=== PATIENT | male | born 1965 | race Caucasian/White ===

== ENCOUNTER 2019-04-15 23:07 | Emergency (ER) | payer MEDICAID ==
[~2019-04-15] VITALS: Ht 175.3 cm; Wt 95.3 kg
--- NOTE | 2019-04-15 23:47 | NUR ---
BIBSELF C/O URI X3 DAYS. C/O NONPRODUCTIVE COUGH, SORE THROAT, BODY ACHE. 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 PT AAOX4. RESPIRATIONS EVEN AND UNLABORED. SKIN WARM TO TOUCH. NO ACUTE DISTRESS NOTED AT THIS TIME. WILL CONTINUE TO MONITOR
[2019-04-16] MEDS ORDERED: ACETAMINOPHEN 325 MG TABLET ONE (00:42)
--- NOTE | 2019-04-16 00:52 | NUR ---
PT BROUGHT BY RADIOLOGY
--- NOTE | 2019-04-16 00:55 | NUR ---
PT RETURNED FROM RADIOLOGY
[2019-04-16] MEDS ORDERED: ACETAMINOPHEN 325 MG TABLET PO ONE (01:00)
[2019-04-16] MEDS ORDERED: CEFTRIAXONE 1GM BAG (ER ONLY) 50 ML IV ONE (01:20)
[2019-04-16] MEDS ORDERED: IBUPROFEN 600 MG TABLET PO ONE ×2 (01:20→01:30)
[2019-04-16] MEDS ORDERED: AZITHROMYCIN 250 MG TABLET ONE (01:20)
[2019-04-16 01:21] LABS: BASOPHILS # (AUTO) 0.1 /CMM (0.0-0.2); BASOPHILS % (AUTO) 0.5 % (0.0-2.0); HEMATOCRIT 42 % (39-51); HEMOGLOBIN 14.3 g/dL (13.5-17.5); LYMPHOCYTES # (AUTO) 0.9 /CMM (0.8-4.8); LYMPHOCYTES % (AUTO) 7.5 % (20.0-44.0); MEAN CORPUSCULAR HGB CONC 34 g/dl (31.0-36.0); MEAN CORPUSCULAR VOLUME 95 fL (80-96); MONOCYTES # (AUTO) 1.3 /CMM (0.1-1.30); MONOCYTES % (AUTO) 10.6 % (2.0-12.0); NEUTROPHILS # (AUTO) 9.8 /CMM (1.8-8.9); NEUTROPHILS % (AUTO) 81.4 % (43.0-81.0); PLATELET COUNT (AUTO) 224 /CMM (150-450); RED BLOOD CELL COUNT(AUTO) 4.39 MIL/uL (4.5-6.0)
[2019-04-16] MEDS ORDERED: IV NS 0.9% 1,000 ML BAG IV ONE (01:30)
[2019-04-16] MEDS ORDERED: AZITHROMYCIN 250 MG TABLET PO ONE (01:30)
[2019-04-16] MEDS ORDERED: CEFTRIAXONE 1 G in IV D5W 50 ML IV ONE (01:30)
[2019-04-16 01:31] LABS: CALCIUM, SERUM 8.5 mg/dL (8.5-10.1); CREATININE 1.2 mg/dL (0.6-1.3); POTASSIUM 3.6 mmol/L (3.5-5.1)
--- NOTE | 2019-04-16 02:16 | NUR ---
Patient discharged to home in stable condition. Written and verbal after care instructions given. Patient verbalizes understanding of instruction. IV removed. Catheter intact and site benign. Pressure and 4x4 applied to site. No bleeding noted.Pt ambulatory with a steady gait
[2019-04-16 02:17] VITALS: BP 144/81
== END 2019-04-16 02:17 | disposition home or self-care (01) ==
LOC: ER 23:10
DX: J18.9 Pneumonia, unspecified organism (principal); R00.0 Tachycardia, unspecified
CPT/HCPCS: 36415; 71046; 80048; 85025; 96365; 99284; J0696 ×2; J7030; J7040; J7060

== ENCOUNTER 2024-10-28 22:29 | Emergency (ER) | payer MEDICAID ==
[~2024-10-28] VITALS: Ht 172.7 cm; Wt 90.7 kg
[2024-10-29] MEDS ORDERED: NAPR-1009 PO (00:44)
[2024-10-29] MEDS ORDERED: HYDROMORPHONE 1 MG/1 ML DISP.SYRIN ONE (01:00)
[2024-10-29] MEDS ORDERED: ONDANSETRON 4 MG TAB.RAPDIS ONE (01:00)
[2024-10-29] MEDS: HYDROMORPHONE 1 MG/1 ML DISP.SYRIN IM ONE (01:15)
[2024-10-29] MEDS: ONDANSETRON 4 MG TAB.RAPDIS PO ONE (01:16)
[2024-10-29 01:31] VITALS: BP 155/98; TEMP 98.8; O2SAT 99
== END 2024-10-29 01:32 | disposition home or self-care (01) ==
LOC: ER 22:35
DX: S52.691A Other fracture of lower end of right ulna, initial encounter for closed fracture (principal); W01.0XXA Fall on same level from slipping, tripping and stumbling without subsequent striking against object, initial encounter; Y93.89 Activity, other specified; Y92.89 Other specified places as the place of occurrence of the external cause; Y99.8 Other external cause status
CPT/HCPCS: 99283; 73090; 96372; Q0162; J1171

== ENCOUNTER 2024-11-28 20:28 | Emergency (ER) | payer MEDICAID ==
[~2024-11-28] VITALS: Ht 175.3 cm; Wt 95.3 kg
[~2024-11-28 20:28] MED LIST: NAPR-1009 PO
[2024-11-28 21:49] VITALS: BP 198/105; TEMP 99; O2SAT 99
[2024-11-28] MEDS ORDERED: KETOROLAC TROMETHAMINE 15 MG/ML VIAL ONE (22:11)
[2024-11-28] MEDS ORDERED: CLIN300C12 PO (22:11)
[2024-11-28] MEDS: KETOROLAC TROMETHAMINE 15 MG/ML VIAL IM ONE (22:15)
== END 2024-11-28 22:28 | disposition home or self-care (01) ==
LOC: ER 20:30
DX: K04.7 Periapical abscess without sinus (principal); K02.9 Dental caries, unspecified; I10 Essential (primary) hypertension; R68.83 Chills (without fever)
CPT/HCPCS: 99283; 96372; J1885

== ENCOUNTER 2025-09-24 14:54 | Inpatient (IN) | payer MEDICAID, OTHER ==
[~2025-09-24] VITALS: Ht 175.3 cm; Wt 78.5 kg
[~2025-09-24 14:54] MED LIST changes: +CLIN300C12 PO
[2025-09-24 15:37] LABS: PLATELET COUNT (AUTO) 307 K/uL (150-450); RED BLOOD CELL COUNT(AUTO) 4.28 MIL/uL (4.5-6.0); RED CELL DISTRIBUTION WIDTH 17.3 % (11.5-15.0); WHITE BLOOD COUNT (AUTO) 9.2 K/uL (4.3-11.0)
[2025-09-24 15:49] LABS: CALCIUM, SERUM 8.8 mg/dL (8.5-10.1); CREATININE 1.1 mg/dL (0.6-1.3); SODIUM SERUM 140 mmol/L (136-145); UREA NITROGEN, BLOOD 14 mg/dL (7-18)
[2025-09-24] MEDS ORDERED: METOPROLOL TARTRATE INJ 5 MG/5 ML AMPUL ONE (15:49)
[2025-09-24] MEDS ORDERED: KETOROLAC TROMETHAMINE INJ 30 MG/ML VIAL ONE (15:50)
[2025-09-24] MEDS: METOPROLOL TARTRATE INJ 5 MG/5 ML AMPUL IV ONE (15:53)
[2025-09-24] MEDS: KETOROLAC TROMETHAMINE 15 MG/ML VIAL IV ONE (15:53)
[2025-09-24] MEDS ORDERED: IOHEXOL-350 100 ML VIAL IV ONE (15:57)
[2025-09-24] MEDS ORDERED: ACETAMINOPHEN 325 MG TABLET ONE (15:58)
[2025-09-24 16:02] LABS: NT-PRO BNP 10333 pg/mL (0-125)
[2025-09-24] MEDS ORDERED: ENOXAPARIN SODIUM 100 MG/ML DISP.SYRIN SQ ONE (16:12)
[2025-09-24] MEDS: ENOXAPARIN SODIUM 80 MG/0.8 ML DISP.SYRIN SQ ONE (16:27)
[2025-09-24] MEDS: FUROSEMIDE 40 MG/4 ML VIAL IV ONE (16:56)
[2025-09-24] MEDS ORDERED: AMIO200T7 PO (18:02)
[2025-09-24] MEDS ORDERED: METF-440 PO (18:02)
[2025-09-24] MEDS ORDERED: APIX5TAB PO (18:02)
[2025-09-24] MEDS ORDERED: METO-357 PO (18:02)
[2025-09-24] MEDS ORDERED: ATOR20TA PO (18:02)
[2025-09-24] MEDS ORDERED: NITR0.4T48 SL (18:02)
[2025-09-24] MEDS ORDERED: SPIR25TA6 PO (18:02)
[2025-09-24] MEDS ORDERED: LOSA25TA27 PO (18:02)
[2025-09-24] MEDS: GUAIFENESIN/D-METHORPHAN HB 5 ML UDC PO ONE (18:21)
[2025-09-24] MEDS ORDERED: GUAIFENESIN/D-METHORPHAN HB 5 ML UDC ONE (18:21)
[2025-09-24] MEDS ORDERED: MAG HYDROX/AL HYDROX/SIMETH 30 ML UDC PO PRN (18:30)
[2025-09-24] MEDS ORDERED: ONDANSETRON HCL/PF 4 MG/2 ML VIAL IVP PRN (18:30)
[2025-09-24] MEDS ORDERED: MAGNESIUM HYDROXIDE 30 ML UDC PO PRN (18:30)
[2025-09-24] MEDS ORDERED: ALBUTEROL FS 2.5 MG/3 ML VIAL.NEB NEB PRN (18:30)
[2025-09-24 18:37] VITALS: BP 140/90; TEMP 98; O2SAT 98
[2025-09-24 19:30] VITALS: BP 144/107; TEMP 98.2; O2SAT 97
[2025-09-24 20:00] VITALS: BP 144/107; TEMP 98.2; O2SAT 97
[2025-09-24] MEDS: CEFTRIAXONE 1 G in IV D5W 50 ML IV SCH (20:40)
[2025-09-25] VITALS: BP 153/95; TEMP 98.1; O2SAT 94
[2025-09-25] MEDS: ACETAMINOPHEN 325 MG TABLET PO PRN (00:16)
[2025-09-25] MEDS ORDERED: DEXTROSE 50%-WATER 50 ML DISP.SYRIN IV PRN (00:30)
[2025-09-25 04:00] VITALS: BP_SYST 144; BP_SYST 153; BP_DIAS 94; BP_DIAS 95; TEMP 97.9; TEMP 98.1; O2SAT 94; O2SAT 95
[2025-09-25] MEDS: BLOOD SUGAR DIAGNOSTIC 1 EACH STRIP IN SCH (07:05)
[2025-09-25 07:07] VITALS: BP 136/102; TEMP 97.9; O2SAT 95
[2025-09-25 07:17] LABS: PLATELET COUNT (AUTO) 296 K/uL (150-450); RED BLOOD CELL COUNT(AUTO) 4.14 MIL/uL (4.5-6.0); RED CELL DISTRIBUTION WIDTH 17.1 % (11.5-15.0); WHITE BLOOD COUNT (AUTO) 10.2 K/uL (4.3-11.0)
[2025-09-25] MEDS: PANTOPRAZOLE 40 MG TABLET.DR PO SCH (07:34)
[2025-09-25 07:48] LABS: ASPARTATE AMINOTRANSFERASE 17.0 U/L (15-37); CALCIUM, SERUM 8.5 mg/dL (8.5-10.1); CREATININE 1.1 mg/dL (0.6-1.3); PHOSPHORUS 3.7 mg/dL (2.5-4.9); SODIUM SERUM 140.0 mmol/L (136-145); TOTAL PROTEIN, SERUM 6.7 g/dL (6.4-8.2); UREA NITROGEN, BLOOD 17.0 mg/dL (7-18)
[2025-09-25] MEDS: FUROSEMIDE 20 MG/2 ML VIAL IV ONE (09:01)
[2025-09-25] MEDS: ENOXAPARIN SODIUM 100 MG/ML DISP.SYRIN SQ SCH (09:02)
[2025-09-25] MEDS: SPIRONOLACTONE 25 MG TABLET PO SCH (09:36)
[2025-09-25] MEDS: METFORMIN 500 MG TABLET PO SCH (09:36)
[2025-09-25] MEDS: POTASSIUM CHLORIDE 20 MEQ TAB.PRT.SR PO SCH (09:36)
[2025-09-25] MEDS: METOPROLOL TARTRATE 50 MG TABLET PO SCH (09:37)
[2025-09-25] MEDS: LOSARTAN POTASSIUM 25 MG TABLET PO SCH (09:38)
[2025-09-25] MEDS: AMIODARONE HCL 200 MG TABLET PO SCH (09:38)
[2025-09-25] MEDS: FUROSEMIDE 40 MG/4 ML VIAL IV SCH (09:38)
[2025-09-25 09:57] LABS: LDL 99.0 mg/dL (0-99)
[2025-09-25] MEDS: DOXYCYCLINE HYCLATE (100 MG) 100 MG TABLET PO SCH (10:35)
[2025-09-25 11:30] VITALS: BP 107/83; TEMP 98.1; O2SAT 97
[2025-09-25] MEDS: INSULIN REGULAR, HUMAN 100 UNIT/ML 3 ML VIAL SQ PRN (12:12)
[2025-09-25] MEDS: DILTIAZEM HCL CD 240 MG PO SCH (14:36)
[2025-09-25 16:00] VITALS: BP 112/83; TEMP 98.2; O2SAT 98
[2025-09-25] MEDS: ATORVASTATIN 40 MG TABLET PO SCH (16:53)
[2025-09-25] MEDS: APIXABAN 5 MG TABLET PO SCH (16:54)
[2025-09-25 21:32] VITALS: BP 110/69; TEMP 98.6; O2SAT 97
[2025-09-26] VITALS (24 sets, daily range): BP systolic 82–119; BP diastolic 50–85; TEMP 98–98.4; O2SAT 93–100
[2025-09-26 07:33] LABS: PLATELET COUNT (AUTO) 304 K/uL (150-450); RED BLOOD CELL COUNT(AUTO) 4.37 MIL/uL (4.5-6.0); RED CELL DISTRIBUTION WIDTH 17.0 % (11.5-15.0); WHITE BLOOD COUNT (AUTO) 9.6 K/uL (4.3-11.0)
[2025-09-26 08:10] LABS: CALCIUM, SERUM 8.9 mg/dL (8.5-10.1); CREATININE 1.2 mg/dL (0.6-1.3); PHOSPHORUS 4.6 mg/dL (2.5-4.9); SODIUM SERUM 139.0 mmol/L (136-145); UREA NITROGEN, BLOOD 23.0 mg/dL (7-18)
[2025-09-26] MEDS: SPIRONOLACTONE 25 MG TABLET PO SCH (08:19)
[2025-09-26] MEDS: METOPROLOL TARTRATE 50 MG TABLET PO SCH (08:19)
[2025-09-26] MEDS ORDERED: IOHEXOL-350 100 ML VIAL IV ONE (09:16)
[2025-09-26] MEDS ORDERED: IV NS 0.9% 250 ML IV ONE (09:17)
[2025-09-26] MEDS: NITROGLYCERIN 0.4 MG/TAB BOTTLE SL ONE (09:39)
[2025-09-26] MEDS: IV NS 0.9% 500 ML IV ONE (15:15)
[2025-09-26] MEDS: IV NS 0.9% 250 ML IV PRN (20:26)
[2025-09-27] VITALS (15 sets, daily range): BP systolic 103–130; BP diastolic 63–91; TEMP 98–98.5; O2SAT 94–100
[2025-09-27] MEDS: METOPROLOL SUCCINATE 50 MG TAB.SR.24H PO SCH (09:00)
[2025-09-27] MEDS: LOSARTAN POTASSIUM 50 MG TABLET PO SCH (09:00)
[2025-09-27] MEDS ORDERED: DAPA10TA PO (09:09)
[2025-09-27] MEDS ORDERED: METO50TA7 PO (09:09)
[2025-09-27] MEDS ORDERED: SACU1TAB7 PO (09:09)
== END 2025-09-27 16:04 | disposition home or self-care (01) | DRG 194 ==
LOC: ER 15:03 → TELE 18:15 → ICU 09-26 15:44
PROVIDERS: ADMIT Nurse Practitioner Family; ATTEND Nurse Practitioner Acute Care
DX: I11.0 Hypertensive heart disease with heart failure (principal); I21.A1 Myocardial infarction type 2; Z79.01 Long term (current) use of anticoagulants; I50.23 Acute on chronic systolic (congestive) heart failure; E11.65 Type 2 diabetes mellitus with hyperglycemia; E66.9 Obesity, unspecified; E04.1 Nontoxic single thyroid nodule; I48.91 Unspecified atrial fibrillation; Z20.822 Contact with and (suspected) exposure to COVID-19; E78.5 Hyperlipidemia, unspecified; I25.2 Old myocardial infarction; Z87.01 Personal history of pneumonia (recurrent); Z79.84 Long term (current) use of oral hypoglycemic drugs; Z79.899 Other long term (current) drug therapy; Z68.29 Body mass index [BMI] 29.0-29.9, adult; I42.9 Cardiomyopathy, unspecified; R00.1 Bradycardia, unspecified
CPT/HCPCS: 36415; 71045-TC; 75574; 80048-TC; 80061-TC; 80076-TC; 82962-TC; 83735-TC; 83880; 84100-TC; 84439-TC; 84443-TC; 84484-TC; 85025-TC; 85378-TC; 87040-TC; 93307-TC; A4223; G0378; J0696; J1650; J1815; J1885; J1938; J3490; J7040; J7050; J7060; Q9967